=== PATIENT | female | born 1955 | race Caucasian/White ===

== ENCOUNTER 2018-10-14 05:50 | Day surgery (SDC) | payer MEDICARE, BC ==
[2018-10-10 10:08] LABS: ABSOLUTE EOSINOPHILS # (AUTO) 0.1 10^3/uL (0.0-0.6); ABSOLUTE LYMPHOCYTES (AUTO) 1.9 10^3/uL (0.5-4.7); ABSOLUTE MONOCYTES (AUTO) 0.4 10^3/uL (0.1-1.4); ABSOLUTE NEUT (AUTO) 2.2 10^3/uL (1.7-8.2); BASOPHILS % (AUTO) 0.6 % (0-2); EOSINOPHILS % (AUTO) 1.8 % (0-6); HEMATOCRIT 37.8 % (36.0-47.0); HEMOGLOBIN 12.8 g/dL (12.0-15.5); LYMPHOCYTES % (AUTO) 41.2 % (13-45); MEAN CORPUSCULAR HEMOGLOBIN 30.3 pg (27.0-33.4); MEAN CORPUSCULAR HGB CONC 33.9 g/dL (32.0-36.0); MEAN CORPUSCULAR VOLUME 90 fl (80-97); MONOCYTES % (AUTO) 7.9 % (3-13); PLATELET COUNT 160 10^3/uL (150-450); RED BLOOD COUNT 4.23 10^6/uL (3.72-5.28); RED CELL DISTRIBUTION WIDTH 13.2 % (11.5-14.0); SEGMENTED NEUTROPHILS % (AUTO) 48.5 % (42-78); TOTAL CELLS COUNTED % (AUTO) 100 %; WHITE BLOOD COUNT 4.5 10^3/uL (4.0-10.5)
[2018-10-10 10:26] LABS: ANION GAP 5 (5-19); BLOOD UREA NITROGEN 17 mg/dL (7-20); CALCIUM 9.1 mg/dL (8.4-10.2); CARBON DIOXIDE 36 mmol/L (22-30); CHLORIDE 95 mmol/L (98-107); GLUCOSE 266 mg/dL (75-110); POTASSIUM 4.4 mmol/L (3.6-5.0); SODIUM 135.9 mmol/L (137-145)
[~2018-10-14 05:50] MED LIST: CLINDAMYCIN 600 MG/D5W RTU 600 MG/50 ML RTUPB IV ONE; CLINDAMYCIN 600 MG/D5W RTU 600 MG/50 ML RTUPB IV PRN; LACTATED RINGERS 1000 ML IV PRN; LIDOCAINE 0.5% INJ-PF (5 MG/ML) 50 ML SDV SUBCUT PRN
[2018-10-14 06:47] LABS: INTERNATIONAL RATION (INR) 0.92; PROTHROMBIN TIME 12.4 SEC (11.4-15.4)
[2018-10-14] MEDS ORDERED: FENTANYL CITRATE INJ/PF 100 MCG/2 ML AMPUL ONE (06:54)
[2018-10-14] MEDS ORDERED: PROPOFOL INJ 200 MG/20 ML VIAL IV ONE (06:54)
[2018-10-14] MEDS ORDERED: MIDAZOLAM 2 MG/2 ML INJ ONE (06:54)
[2018-10-14] MEDS ORDERED: LIDOCAINE 2% INJ-PF (20 MG/ML) 10 ML AMPUL ONE (06:55)
[2018-10-14] MEDS ORDERED: ONDANSETRON HCL INJ/PF 4 MG/2 ML SDV ONE (06:57)
[2018-10-14] MEDS ORDERED: BUPIVACAINE HCL 0.25 % INJ/PF (2.5 MG/1 ML) 30 ML VIAL ONE (07:36)
[2018-10-14] MEDS ORDERED: LIDOCAINE 1% INJ-PF (10 MG/ML) 30 ML SDV ONE (07:36)
[2018-10-14] MEDS ORDERED: SODIUM BICARBONATE 4.2% INJ (2.5 MEQ/5 ML) VIAL ONE (07:37)
[2018-10-14] MEDS ORDERED: BUPIVACAINE HCL 0.25% /EPINEPHRINE INJ/PF 30 ML SDV ONE (08:10)
[2018-10-14] MEDS ORDERED: MORPHINE SULFATE 10 MG/ML INJ IV PRN (08:27)
[2018-10-14] MEDS ORDERED: OXYCODONE-ACETAMINOPHEN 5-325 MG TABLET PO PRN ×3 (08:27→11:35)
[2018-10-14] MEDS ORDERED: DIPHENHYDRAMINE HCL 50 MG/ML VIAL IV PRN (08:27)
[2018-10-14] MEDS ORDERED: PROMETHAZINE HCL INJ 25 MG/1 ML VIAL IV PRN ×2 (08:27)
[2018-10-14] MEDS ORDERED: MEPERIDINE HCL/PF INJ 25 MG/1 ML DISP.SYRIN IV PRN (08:27)
[2018-10-14] MEDS ORDERED: FENTANYL CITRATE INJ/PF 100 MCG/2 ML AMPUL IV PRN ×3 (08:27)
[2018-10-14] MEDS ORDERED: CEFAZOLIN INJ 1 GM VIAL ONE (09:32)
[2018-10-14] MEDS ORDERED: CLINDAMYCIN PHOSPHATE INJ 300 MG/2 ML SDV ONE (09:42)
--- NOTE | 2018-10-14 10:05 | OPERATIVE REPORT E ---
Operative Report NAME: ALINA PATTERSON : 1955 AGE: 62Y DATE OF SURGERY: 10/14/2018 ROOM: PREOPERATIVE DIAGNOSIS: Nonfunctioning intrathecal pump system. POSTOPERATIVE DIAGNOSIS: Nonfunctioning intrathecal pump system. OPERATIVE PROCEDURE: 1. Removal and replacement of programmable, refillable intrathecal pump. 2. Refilling of pump. 3. Programming pump. SURGEON: RADHA CASTRO M.D. ANESTHESIA: MAC. BLOOD LOSS: Minimal. INDICATIONS: Nonfunctioning pump. COMPLICATIONS: None. SPECIMENS REMOVED: Pump only, not sent to pathology. PROCEDURE NOTE: After obtaining informed consent advising the patient of the risks and benefits, including catheter injury, pump malfunction, bleeding, and infection, overdose of medications, allergic reaction, and , she was taken to the operating room and placed comfortably in the supine position. She was prepped with chlorhexidine over the affected surgical site with appropriate drying time and then draped. The pump was evaluated under fluoroscopy to assure location of the catheter and any additional appliances that may be present. The catheter appeared to be put to the underside of the pump and not any catheter over the sides of the pump or on top of the pump. The wound was then infiltrated with 1% lidocaine with bicarb. The pump pocket was instilled with 5 mL of 0.25% bupivacaine with epinephrine. Sharp and blunt dissection were performed through the old scar. Hemostasis was obtained with electrocautery as necessary. The pump was readily identified. It should be noted that the residual pump sock was present probably from her initial pump placement. No stay sutures were placed in the pump due to the presence of the pump sock. The pump was removed from the pocket. The pump nipple was removed from the pump. An attempt was made to aspirate the catheter. No spinal fluid or drug were removed from the catheter, indicating some obstruction of the catheter to aspiration distally. The decision was made to do a back table prime. The medication was removed from the old pump. A total of 20 mL was taken and placed into the new pump. The pump was then programmed for a back table prime to clear the pump tubing of saline. This took 19 minutes. The pocket was irrigated with Betadine-containing irrigation solution. Some relief incisions were made with care not to injure the catheter below the pump pocket sock. When the prime was finished the catheter was connected to the pump and secured with 2 Mersilene 0 ties. The wound was then further irrigated. The pump was placed into the pocket with the filling ports facing the skin. The pump pocket edges were then closed with inverted vertical mattress 2-0 Polysorb. When this was completed additional irrigation was performed followed by closure of the subcutaneous tissue with inverted vertical mattress sutures using 3-0 Polysorb. The skin came quite nicely together. The region was cleansed, dried, and Exofin was used to seal the skin. Telfa dressings were placed on this when it was dry followed by sponge Tegaderm. The patient was then taken to the PACU for further postoperative care and monitoring. DICTATING PHYSICIAN: RADHA CASTRO M.D. [id number] PHY#: [id number] ID: [id number] JOB#: [id number] ACCT: [id number] cc:RADHA CASTRO M.D. >
--- NOTE | 2018-10-14 10:08 | RADIOLOGY REPORT (SQ) ---
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 FLUOROSCOPY TIME: 0.2 minutes fluoroscopy time 6 images saved to PACS. TECHNIQUE: Intra-operative images acquired during surgical procedure to evaluate progress. NUMBER OF IMAGES: 6 LIMITATIONS: None. FINDINGS: Intraoperative fluoroscopic images obtained to evaluate progress. Please see operative re port for detailed description of procedure. IMPRESSION: IMAGE(S) OBTAINED DURING PROCEDURE. COMMENT: Quality ID 145: Final reports for procedures using fluoroscopy that document radiation exp osure indices, or exposure time and number of fluorographic images (if radiation exposure indices are not available) Please consult full operative report of the attending physician for description of the procedure. TECHNICAL DOCUMENTATION: JOB ID: [id number] [employer] All Rights Reserved Reading location - IP/workstation name: [email or web address]
--- NOTE | 2018-10-14 10:08 | RADIOLOGY REPORT (SQ) ---
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 FLUOROSCOPY TIME: 0.2 minutes fluoroscopy time 6 images saved to PACS. TECHNIQUE: Intra-operative images acquired during surgical procedure to evaluate progress. NUMBER OF IMAGES: 6 LIMITATIONS: None. FINDINGS: Intraoperative fluoroscopic images obtained to evaluate progress. Please see operative re port for detailed description of procedure. IMPRESSION: IMAGE(S) OBTAINED DURING PROCEDURE. COMMENT: Quality ID 145: Final reports for procedures using fluoroscopy that document radiation exp osure indices, or exposure time and number of fluorographic images (if radiation exposure indices are not available) Please consult full operative report of the attending physician for description of the procedure. TECHNICAL DOCUMENTATION: JOB ID: [id number] [employer]- All Rights Reserved Reading location - IP/workstation name: [email or web address]
[2018-10-14 11:49] VITALS: BP 95/51
== END 2018-10-14 11:10 | disposition home or self-care (01) ==
LOC: OROUT 05:50
PROVIDERS: ATTEND Pain Medicine Interventional Pain Medicine
DX: M96.1 Postlaminectomy syndrome, not elsewhere classified (principal); Z79.01 Long term (current) use of anticoagulants; Z79.899 Other long term (current) drug therapy; E11.9 Type 2 diabetes mellitus without complications; M54.17 Radiculopathy, lumbosacral region; Z87.891 Personal history of nicotine dependence; Z79.4 Long term (current) use of insulin; E78.00 Pure hypercholesterolemia, unspecified; G89.4 Chronic pain syndrome; E05.90 Thyrotoxicosis, unspecified without thyrotoxic crisis or storm
CPT/HCPCS: 36415 ×2; 82947; 85025; 85610; 85730; 80048; 74018; 62361; J2250; J3490 ×5; J3010; J2405; J2704; 400; C1772; J0690

== ENCOUNTER 2018-11-18 11:46 | Emergency (ER) | payer MEDICARE, BC ==
[2018-11-18 12:00] VITALS: BP 162/122
[2018-11-18] MEDS ORDERED: MORPHINE SULFATE 10 MG/ML INJ IV ONE ×2 (12:42→14:44)
--- NOTE | 2018-11-18 12:47 | ER Document Report ---
ED Medical Screen (RME) - General Chief Complaint: Back Pain Stated Complaint: BACK PAIN Time Seen by Provider: 11/18/18 12:33 Notes: Patient is a 62-year-old female with a history of chronic low back pain who presents to the emergency department with back pain. Patient states she had her intrathecal pump removed from her spine 2 weeks ago at [facility]. She states it was originally placed here at envelope by Dr. Willoughby's office. She did go to Dr. Thompson's office this morning for her severe pain that started last night and was sent over to the emergency department. Patient states she is having redness, swelling to the lumbar spine. Patient states she is concerned that it may be infected. Patient reports low-grade fevers. TRAVEL OUTSIDE OF THE [place] IN LAST 30 DAYS: No - Related Data Allergies/Adverse Reactions: aspirin Allergy (Severe, Verified 11/18/18 11:53) Hives cephalexin [From Keflex] Allergy (Severe, Verified 11/18/18 11:53) rash hydroxychloroquine [From Plaquenil] Allergy (Severe, Verified 11/18/18 11:53) rash latex Allergy (Severe, Verified 11/18/18 11:53) rash NSAIDS (Non-Steroidal Anti-Inflamma Allergy (Severe, Verified 11/18/18 11:53) "burned" penicillin G Allergy (Severe, Verified 11/18/18 11:53) Anaphylaxis Past Medical History - Past Medical History Cardiac Medical History: Reports: Hx Coronary Artery Disease Denies: Hx Heart Attack, Hx Hypertension Pulmonary Medical History: Denies: Hx Asthma, Hx Bronchitis, Hx COPD, Hx Pneumonia Neurological Medical History: Denies: Hx Cerebrovascular Accident, Hx Seizures Musculoskeltal Medical History: Reports Hx Arthritis - Immunizations Hx Diphtheria, Pertussis, Tetanus Vaccination: Yes Physical Exam - Vital signs Vitals: Temp Pulse BP Pulse Ox 98.6 F 86 162/122 H 98 11/18/18 11:57 11/18/18 11:57 11/18/18 11:57 11/18/18 11:57 Interpretation: Hypertensive - Back Notes: Area of erythema, edema to lumbar spine and surgical incision, no drainage, very tender upon palpation. Course - Re-evaluation Re-evalutation: 11/18/18 12:46 Patient reports she takes morphine 60 mg extended release twice a day as well as 30 mg of morphine every 4 hours as needed for pain. Patient states she did take both doses this morning without any relief. I have greeted and performed a rapid initial assessment of this patient. A comprehensive ED assessment and evaluation of the patient, analysis of test results and completion of the medical decision making process will be conducted by additional ED providers. - Vital Signs Vital signs: Temp Pulse Resp BP Pulse Ox 98.6 F 86 162/122 H 98 11/18/18 11:57 11/18/18 11:57 11/18/18 11:57 11/18/18 11:57
[2018-11-18 13:11] LABS: ABSOLUTE LYMPHOCYTES (AUTO) 0.9 10^3/uL (0.5-4.7); ABSOLUTE MONOCYTES (AUTO) 0.7 10^3/uL (0.1-1.4); ABSOLUTE NEUT (AUTO) 9.5 10^3/uL (1.7-8.2); BASOPHILS % (AUTO) 0.4 % (0-2); EOSINOPHILS % (AUTO) 0.2 % (0-6); HEMATOCRIT 39.8 % (36.0-47.0); HEMOGLOBIN 13.4 g/dL (12.0-15.5); LYMPHOCYTES % (AUTO) 8.1 % (13-45); MEAN CORPUSCULAR HGB CONC 33.6 g/dL (32.0-36.0); MEAN CORPUSCULAR VOLUME 89 fl (80-97); MONOCYTES % (AUTO) 6.4 % (3-13); PLATELET COUNT 219 10^3/uL (150-450); RED BLOOD COUNT 4.46 10^6/uL (3.72-5.28); RED CELL DISTRIBUTION WIDTH 13.3 % (11.5-14.0); SEGMENTED NEUTROPHILS % (AUTO) 84.9 % (42-78); TOTAL CELLS COUNTED % (AUTO) 100 %; WHITE BLOOD COUNT 11.1 10^3/uL (4.0-10.5)
[2018-11-18 13:27] LABS: BLOOD UREA NITROGEN 14 mg/dL (7-20); CALCIUM 9.4 mg/dL (8.4-10.2); CARBON DIOXIDE 31 mmol/L (22-30); CHLORIDE 92 mmol/L (98-107); GLUCOSE 168 mg/dL (75-110); POTASSIUM 4.2 mmol/L (3.6-5.0)
[2018-11-18 13:28] LABS: ALBUMIN 4.2 g/dL (3.5-5.0); ALKALINE PHOSPHATASE 108 U/L (38-126); ANION GAP 11 (5-19); ASPARTATE AMINO TRANSFERASE 22 U/L (14-36); BILIRUBIN,DIRECT 0.2 mg/dL (0.0-0.4); BILIRUBIN,TOTAL 0.5 mg/dL (0.2-1.3)
--- NOTE | 2018-11-18 15:00 | ER Document Report ---
ED General - General Chief Complaint: Back Pain Stated Complaint: BACK PAIN Time Seen by Provider: 11/18/18 12:33 Primary Care Provider: LYNETTE VO NP [Primary Care Provider] - Follow up as needed TRAVEL OUTSIDE OF THE [place] IN LAST 30 DAYS: No - HPI Notes: Patient is a 62-year-old female who presents emergency department for evaluation. She had an intrathecal pain pump. Was present for several years. It was replaced here by [facility]. It became infected. She was sent to [facility], had a washout, was sent home on antibiotics. She states she was in the hospital for 7 days, was sent home with 3 days of Bactrim. She states that the new pain pump seem to be working again, but then she started being increased pain, low-grade fevers. Yesterday seem to look well, but today it seems "red and puffy." She is had some low-grade fevers. She always has back pain and numbness in her legs. No bowel or bladder incontinence, no saddle anesthesia, no focal weakness beyond her baseline. She states she has had no nausea or vomiting, eating and drinking normally, keeping her medications as prescribed down. - Related Data Allergies/Adverse Reactions: aspirin Allergy (Severe, Verified 11/18/18 11:53) Hives cephalexin [From Keflex] Allergy (Severe, Verified 11/18/18 11:53) rash hydroxychloroquine [From Plaquenil] Allergy (Severe, Verified 11/18/18 11:53) rash latex Allergy (Severe, Verified 11/18/18 11:53) rash NSAIDS (Non-Steroidal Anti-Inflamma Allergy (Severe, Verified 11/18/18 11:53) "burned" penicillin G Allergy (Severe, Verified 11/18/18 11:53) Anaphylaxis Past Medical History - General Information source: Patient - Social History Smoking Status: Current Every Day Smoker Family History: Reviewed & Not Pertinent Patient has suicidal ideation: No Patient has homicidal ideation: No - Past Medical History Cardiac Medical History: Reports: Hx Coronary Artery Disease Denies: Hx Heart Attack, Hx Hypertension Pulmonary Medical History: Denies: Hx Asthma, Hx Bronchitis, Hx COPD, Hx Pneumonia Neurological Medical History: Denies: Hx Cerebrovascular Accident, Hx Seizures Endocrine Medical History: Reports: Hx Diabetes Mellitus Type 2, Hx Hyperthyroidism Renal/ Medical History: Denies: Hx Peritoneal Dialysis GI Medical History: Reports: Other - Hepatitis C Musculoskeletal Medical History: Reports Hx Arthritis - Immunizations Hx Diphtheria, Pertussis, Tetanus Vaccination: Yes Review of Systems - Review of Systems Constitutional: See HPI EENT: No symptoms reported Cardiovascular: No symptoms reported Respiratory: No symptoms reported Gastrointestinal: No symptoms reported Genitourinary: No symptoms reported Musculoskeletal: See HPI Skin: See HPI Neurological/Psychological: No symptoms reported Physical Exam - Vital signs Vitals: Temp Pulse BP Pulse Ox 98.6 F 86 162/122 H 98 11/18/18 11:57 11/18/18 11:57 11/18/18 11:57 11/18/18 11:57 - Notes Notes: Is a 62-year-old female who appears older than her stated age in mild to moderate distress. She is visibly uncomfortable, resting on her right side. Vital signs reviewed, please refer to chart. Head is normocephalic, atraumatic. Pupils equal round, reactive to light. Neck is supple without meningismus. Heart is regular rate and rhythm. Lungs are clear to auscultation bilaterally. Abdomen is soft, nontender, normoactive bowel sounds throughout. Semination the spine yields an obvious well-healing midline surgical scar with significant erythema and induration. Collar noted as well, significant tenderness. Extrem ities without cyanosis, clubbing. Posterior calves are nontender. Peripheral pulses are equal. Skin is warm and dry. Patient is awake, alert, neurological exam is nonfocal. Course - Re-evaluation Re-evalutation: 11/18/18 14:59 Patient presents emergency department for evaluation. She had initial evaluation is done through triage. Laboratory investigations were obtained. I did can order blood cultures as well. Unfortunately the patient has metal in her spine from prior surgeries, is unable to have an MRI. CT scan with IV contrast of the lumbar spine was ordered and is pending at this time. We will continue to monitor. 11/18/18 17:11 CT scan of the lumbar spine with IV contrast had been ordered. Unfortunately there was a delay in obtaining the scan. The patient was brought over to CT, then refused to have it until she got more pain medication. I explained that this was a study that would be required to rule out a potential epidural abscess, which would be potentially life and limb threatening. She refused to have CT scan done. She went back to her room. She threatened to leave AGAINST MEDICAL ADVICE via the nurse. I explained that I would be back to discuss this with the patient. I did ask the nurse to explained to her that my concern for abscess was significant, especially given her recent complications. I explained to her that complications of this could leave her paralyzed, was even worse d ebilitating back pain, or even . This was communicated by nursing, but she would not wait for me to come and reevaluate her. She stated she just wanted to go home. Again verbal warning for possible complications of leaving AGAINST MEDICAL ADVICE with her suspected diagnosis were given by nursing, but the patient would not wait for my evaluation and signed out AGAINST MEDICAL ADVICE. - Vital Signs Vital signs: Temp Pulse Resp BP Pulse Ox 98.6 F 86 162/122 H 98 11/18/18 11:57 11/18/18 11:57 11/18/18 11:57 11/18/18 11:57 - Laboratory Result Diagrams: 11/18/18 13:00 11/18/18 13:00 Laboratory results interpreted by me: 11/18/18 11/18/18 13:00 13:00 WBC 11.1 H Seg Neutrophils % 84.9 H Lymphocytes % 8.1 L Absolute Neutrophils 9.5 H Sodium 133.8 L Chloride 92 L Carbon Dioxide 31 H Glucose 168 H Discharge - Discharge Clinical Impression: Left against medical advice Condition: Stable Disposition: AGAINST MEDICAL ADVICE Referrals: LYNETTE VO NP [Primary Care Provider] - Follow up as needed
== END 2018-11-18 17:06 | disposition left against medical advice (07) ==
LOC: ER 11:46
DX: M54.9 Dorsalgia, unspecified (principal); R50.9 Fever, unspecified; R20.0 Anesthesia of skin; Z96.89 Presence of other specified functional implants; Z79.899 Other long term (current) drug therapy; Z53.29 Procedure and treatment not carried out because of patient's decision for other reasons; F17.200 Nicotine dependence, unspecified, uncomplicated; I25.10 Atherosclerotic heart disease of native coronary artery without angina pectoris; E11.9 Type 2 diabetes mellitus without complications; Z88.8 Allergy status to other drugs, medicaments and biological substances; Z88.1 Allergy status to other antibiotic agents; Z91.040 Latex allergy status; Z88.0 Allergy status to penicillin; Z87.892 Personal history of anaphylaxis
CPT/HCPCS: 36415; 87040; 85025; 80053; J2270; 87077; 99281